=== PATIENT | female | born 1990 | race Caucasian/White ===

== ENCOUNTER 2016-08-13 10:33 | Emergency (ER) | payer OTHER ==
[~2016-08-13] VITALS: Ht 154.9 cm; Wt 61.4 kg
[~2016-08-13 10:33] MED LIST: ALBU18HF INH; DOCU250C2 PO; HYDR-3740; KETO10TA PO; LORA1TAB PO; OMEP20CA11 PO; ONDA4TAB12 PO; OXYC10TA8 PO; TAMS0.4C29 PO; ZOLP10TA5 PO
[2016-08-13 10:34] VITALS: BP 114/80; PULSE 91; RESP 18; O2SAT 100
[2016-08-13] MEDS ORDERED: Ondansetron 2 mg/mL 2 mL Inj IVPUSH ONE (10:40)
[2016-08-13] MEDS ORDERED: HYDROmorphone 1 mg/mL Inj IVPUSH PRN (11:25)
[2016-08-13 11:28] LABS: BASOPHILS % (AUTO) 0.3 % (0-3); EOSINOPHILS % (AUTO) 2.1 % (0-5); MONOCYTES % (AUTO) 10.1 % (4-12); Mean Corpuscular Volume 90.5 fL (81-100); NEUTROPHILS % (AUTO) 63.1 % (40-74); Platelet Count 216 bil/L (150-400)
--- NOTE | 2016-08-13 11:33 | ED.REPORT ---
HPI-Abd Pain F Under 40 Date of Service Aug 13, 2016 ED Provider: Feliberto Rodriguez PA-C Ann is a 26 old female presenting with a chief complaint of right flank pain. Patient reports a history of hysterectomy approximately year and a half ago for endometriosis and PID, treated by ureter damage resulting in several procedures to place stents and a ureter reimplantation. Patient reports ongoing kidney problems. She reports intermittent flank and abdominal pain over that time worsening in the last 2 days. She describes pain centered in her right flank radiating to her groin sometimes radiated across her lower abdomen. Complains of pain in her flank with urination, a sensation that she is not fully emptying her bladder but also leaking urine both at rest and with activity. Patient was treated with cephalexin for 5 days approximately 2 weeks ago for urinary tract infection, by Dr. Galindo, her PCP. Doctor Josie also referred her to [facility] emergency department last week for imaging to rule out appendicitis. 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 She has not established care with either urologist or denture laboratory technician locally. Admits nausea but denies vomiting, fever, diarrhea, melena, hematochezia. Admits episode of vaginal spotting 2 weeks ago which has resolved. Patient has a robust pain management plan in place including 7.5/325 mg hydrocodone/apap 2 tabs 4 times a day and 30 mg oxycodone 4 times a day. Admits history of cholecystectomy. Review of records obtained from [facility] indicate she was seen on 3 occasions at [facility] emergency Department for similar complaints, most recently yesterday. At that visit she received ultrasound of the appendix, and pelvis with transvaginal Doppler in which appendix was not visualized, normal ovaries with normal Doppler flow are visualized uterus and gallbladder are surgically absent. CT abdomen and pelvis with contrast reveals mild renal pelviectasis due to bladder distention. No acute intra-abdominal or pelvic abnormalities. Labs are negative for leukocytosis, CMP is normal Nursing Notes Stated Complaint: KIDNEY/PELVIC PAIN Chief Complaint: Female Abdominal Pain Nursing Notes Reviewed: Yes Allergies: Coded Allergies: Sulfa (Sulfonamide Antibiotics) (Verified Allergy, Severe, Rash,Itching,, 07/18/15) adhesive tape (Verified Allergy, Severe, Rash,Itching,, 07/18/15) ciprofloxacin (Verified Allergy, Severe, Rash,Itching,, 07/18/15) bupropion (Verified Adverse Reaction, Severe, Nausea,Vomiting, 07/18/15) haloperidol (Verified Adverse Reaction, Severe, Nausea,Vomiting, 07/18/15) ibuprofen (Verified Adverse Reaction, Severe, swell, 07/18/15) tramadol (Verified Adverse Reaction, Severe, Nausea,Vomiting, 07/18/15) Scheduled Amoxicillin/Clav K 875-125 mg (Amoxicillin/Clav K 875-125 mg) 875 Mg Tab 1 TABLET PO BID Omeprazole (Omeprazole) 20 Mg Capsule.dr 20 MG PO BID Ondansetron ODT (Ondansetron ODT) 8 Mg Tab.rapdis 8 MG PO TID Tamsulosin ER (Tamsulosin ER) 0.4 Mg Cap.er.24h 0.4 MG PO BID URINARY SPASMS Scheduled PRN Albuterol Sulfate (Ventolin HFA Inhaler) 200 Puff/18 Gm Inhaler 2 PUFFS INH Q4H PRN PRN For Shortness of Breath Docusate Sodium (Docusate Sodium) 250 Mg Capsule 1 CAPSULE PO BID PRN PRN For Constipation Hydrocodone-Acetaminophen 10-325 mg (Hydrocodone-Acetaminophen 10-325 mg) 1 Each Tablet 2 TAB Q4-6H PRN PRN For Pain Ketorolac Tromethamine (Ketorolac Tromethamine) 10 Mg Tablet 1 TAB PO Q4-6H PRN PRN For Pain Lorazepam (Lorazepam) 1 Mg Tablet 1 TAB PO TID PRN PRN For Anxiety Ondansetron ODT (Ondansetron ODT) 4 Mg Tab.rapdis 4 MG PO Q4-6H PRN PRN For Nausea Zolpidem (Zolpidem) 10 Mg Tablet 1 TAB PO HS PRN PRN For Insomnia oxyCODONE (oxyCODONE) 10 Mg Tablet 1 TAB PO Q6H PRN PRN For Pain General Time Seen by MD: 11:02 Chief Complaint Flank pain right Past Medical History Past Medical History 1. Pelvic inflammatory disease secondary to severe endometriosis status post partial abdominal hysterectomy. 2. Anxiety. 3. Asthma. 4. Insomnia. Past Surgical History 1. Partial abdominal hysterectomy. 2. Cholecystectomy. 3. Tonsillectomy and adenoidectomy. 4. Myringotomy with tympanostomy 22. 5. Exploratory laparotomies. Family History Mother with diabetes mellitus and history of cervical and uterine cancer status post total abdominal hysterectomy and bilateral salpingo-oophorectomy in remission. Father with diabetes mellitus, hypertension, prostate cancer. Brother with diabetes. Smoking History Current Every Day Smoker Social History The patient is been for 1 year and has no children of her own. Alcohol Use: Denies alcohol use Drug Use: Denies drug use Ambulatory Status Independent Review of Systems Negative unless stated otherwise in history of present illness Physical Exam General: Well appearing, well developed, well nourished, no acute distress. Head: Atraumatic, normocephalic. Eyes: No scleral icterus or injection. No discharge. Vision grossly intact. ENT: Voice clear, hearing grossly intact. Respiratory: Regular rate and rhythm. Breath sounds present, clear to auscultation and equal bilaterally. No respiratory distress. No increased work of breathing, speaks in complete sentences. Cardiovascular: Regular rate and rhythm, without murmur, gallop or rub. No pedal edema. Gastrointestinal: On examination abdomen reveals scars consistent with cholecystectomy, hysterectomy. Negative bruising. Abdomen flat, with mild global tenderness most prominently and right quadrants, without rebound. Bowel sounds normoactive. Back: Normal to inspection. Moderate to severe right CVA tenderness percussion. Referred pain to right CVA with percussion of left CVA Skin: Warm and dry. Neurological: Grossly nonfocal. Psychological: Alert and oriented. Speech appropriate, linear and logical. Behavior appropriate. Initial Vital Signs Vital Signs (First) Date Time Temp Pulse Resp B/P Pulse Ox O2 Delivery O2 Flow Rate FiO2 08/13/16 10:34 36.6 91 18 114/80 100 Room Air Normal Interpretation & Diagnostics Lab Results Interpretation Result Diagram: 08/13/16 1105 08/13/16 1105 Test 08/13/16 11:05 08/13/16 12:54 White Blood Count 6.3th/mm3 (3.8-10.1) Red Blood Count 4.86mil/mm3 (3.90-5.20) Hemoglobin 14.6g/dL (12.0-15.6) Hematocrit 44.0% (35.0-46.0) Mean Corpuscular Volume 90.5fL (81-100) Mean Corpuscular Hemoglobin 30.0pg (27.0-35.0) Mean Corpuscular Hemoglobin Concent 33.2% (32.0-37.0) Red Cell Distribution Width 13.1% (12.3-15.4) Platelet Count 216bil/L (150-400) Neutrophils (%) (Auto) 63.1% (40-74) Lymphocytes (%) (Auto) 23.3% (14-46) Monocytes (%) (Auto) 10.1% (4-12) Eosinophils (%) (Auto) 2.1% (0-5) Basophils (%) (Auto) 0.3% (0-3) Sodium Level 137mEq/L (134-144) Potassium Level 4.3mEq/L (3.5-5.2) Chloride Level 102mEq/L (97-108) Carbon Dioxide Level 21mmol/L (18-29) Blood Urea Nitrogen 18mg/dL (6-20) Creatinine 0.74mg/dL (0.57-1.00) Estimat Glomerular Filtration Rate 136mL/min (>59) Glucose Level 93mg/dL (60-99) Calcium Level 9.3mg/dL (8.5-10.1) Total Bilirubin 0.3mg/dL (0.0-1.2) Aspartate Amino Transf (AST/SGOT) 11U/L (0-50) Alanine Aminotransferase (ALT/SGPT) 7U/L (0-32) Alkaline Phosphatase 56U/L (25-150) Total Protein 7.4g/dL (6.4-8.4) Albumin 4.4g/dL (3.4-5.0) Urine Color Straw (YELLOW) Urine Appearance Slightly cloudy Urine pH 5.5 (5.0-8.0) Urine Specific Hulbert 1.015 (1.003-1.035) Urine Protein Negativemg/dL (NEG,TRACE) Urine Glucose (UA) Negativemg/dL (NEGATIVE) Urine Ketones Negativemg/dL (NEGATIVE) Urine Occult Blood Trace (NEGATIVE) Urine Nitrite Negative (NEGATIVE) Urine Bilirubin Negative (NEGATIVE) Urine Urobilinogen Normalmg/dL (NORMAL) Urine Leukocyte Esterase Negative (NEGATIVE) Urine RBC 0-2/hpf (0-2) Urine WBC 0-5/hpf (0-5) Urine Epithelial Cells Occasional/hpf (NONE-MOD) Urine Crystals None seen (NONE SEEN) Urine Bacteria Moderate/hpf (NONE-FEW) Urine Hyaline Casts None/lpf (NONE) Urine Granular Casts None seen (NONE SEEN) Urine Waxy Casts None seen (NONE SEEN) Urine Red Blood Cell Casts None seen (NONE SEEN) Urine White Blood Cell Casts None seen (NONE SEEN) Urine Mucus Present (None Seen) Urine Trichomonas None seen (NONE SEEN) Urine Yeast None (NONE SEEN) Urinalysis Comment None Urine Culture Reflexed Indicated Re-Eval/Medical Decision Med Decision/Clinical Course 26 year old female with a history of hysterectomy, cared by ureteral damage and several mitigating procedures since a chief complaint of right flank pain. This pain has been ongoing over the last year and a half however worsening in the last 2 days. Denies hematuria, burning with urination but admits to flank pain with urination. Denies fever. Reports abdominal imaging being performed last week as [facility] out of concern for appendicitis. Physical examination reveals a uncomfortable appearing female lying on the gurney patient states she cannot find a comfortable position. She has mild right abdominal tenderness without rebound, moderate to severe right CVA tenderness to percussion.. Vital signs are normal. Discussed case with Dr. Carlos. Records are requested from [facility]. Treatment is initiated with 1 mg of Dilaudid. CBC, CMP and UA, retroperitoneal ultrasound are ordered. CBC, CMP are normal. Retroperitoneal ultrasound reveals mild right hydronephrosis but not thought to be a cause of her flank pain. Urinalysis reveals mild bacteria and mild hematuria. Records received from [facility] include pelvic ultrasound, abdominal ultrasound and abdomen CT pelvis. These are summarized in the history of present illness and revealed no pathology. I discussed this case with Dr. Carlos. We agree that in light of the clinical picture involving flank pain and pain with urination, bacteriuria may justify treatment of antibiotics. Dr. Carlos recommends Augmentin for 10 days. We are reassured against appendicitis, ovarian torsion, ovarian cyst, ectopic ,ureter obstruction, nephrolithiasis, pyelonephritis, cystitis or abscess. We believe she is stable and safe to be discharged home. Recommend follow-up with primary care and provide a referral to urology. Provided emergency return precautions. Patient verbalizes understanding of and consent to the plan. Discharge & Departure Primary Impression: Right flank pain Additional Impression: Bacteria in urine Disposition: Home Discharge Condition All VS Reviewed: Yes Condition: Stable Additional Instructions: Evaluation in the emergency department for right flank pain includes interview, physical examination, review of records from [facility] as well as an ultrasound of the kidney all of which are reassuring that your pain is not caused by an immediately dangerous condition. I believe he is stable and safe to be discharged to home. I will write prescription for Augmentin to be taken twice a day for the next 10 days to treat the bacteria in her urine which may represent an infection. Please call the emergency department at [phone] on Tuesday to review the results of your urine cultures. At that time it may be appropriate to stop taking the medications. I will also write a prescription for antinausea medication. Continue to treat your pain with your previously prescribed pain medications. Follow-up your her primary care provider Tuesday or Tuesday of next week. I have also given you a referral to a urologist to continue investigating your flank pain. Return to the emergency department for new or worsening symptoms including fever , vomiting that does not respond to medication or significant changes in your pain. Referrals: Dee Teran MD EDSupervising Provider for [facility]: Babak Carlos MD copies to: Dee Teran MD; [facility] Feliberto Rodriguez PA-C Aug 13, 2016 11:33
[2016-08-13] MEDS: HYDROmorphone 0.5 mg/0.5 mL iSecure Syringe IVPUSH PRN ×2 (13:07→13:32)
--- NOTE | 2016-08-13 13:17 | DRSVH ---
PROCEDURE: US RENAL SONOGRAM INDICATIONS: R Flank pain, h/o ureteral reimplantation TECHNIQUE: Real-time scanning was performed of the kidneys and bladder, with image documentation. COMPARISON: None. FINDINGS: Kidneys: Kidneys are normal in size. Right kidney measures 10.4 cm long; left kidney measures 11.2 cm long. Right renal cortical thickness is 1.1 cm; left renal cortical thickness is 1.4 cm. Renal c ortical echotexture is normal. No hydronephrosis or nephrolithiasis on the left but there is mild to moderate right hydronephrosis with proximal ureter measuring up to 8 mm. No suspicious solid mass l esions. Bladder: Patient had voided just prior to examination and therefore visualization is very limited. Miscellaneous: No free pelvic fluid. IMPRESSION: Hydronephrosis on the right, mild to moderate in overall severity and certainly within th e range of what is often seen in the setting of ureteral reimplantation procedure. Depending on the clinical status however a followup CT scan may be warranted. As noted the bladder visualization is very limited due to the patient having voided just prior to the examination. Dictated by: Ramon Parsons M.D. on 08/13/2016 at 13:13 Approved by: Ramon Parsons M.D. on 08/13/2016 at 13:15
[2016-08-13] MEDS ORDERED: AGM875T PO (14:05)
[2016-08-13] MEDS ORDERED: ONDA8TAB10 PO (14:05)
[2016-08-13 14:26] VITALS: BP 120/69; PULSE 80; RESP 16; O2SAT 95
== END 2016-08-13 14:27 | disposition home or self-care (01) ==
LOC: SED 10:33
DX: R10.9 Unspecified abdominal pain (principal); R82.71 Bacteriuria; R11.0 Nausea; F17.200 Nicotine dependence, unspecified, uncomplicated; F41.9 Anxiety disorder, unspecified; Z90.710 Acquired absence of both cervix and uterus; Z90.49 Acquired absence of other specified parts of digestive tract; Z87.42 Personal history of other diseases of the female genital tract; Z79.51 Long term (current) use of inhaled steroids; Z88.6 Allergy status to analgesic agent; Z88.1 Allergy status to other antibiotic agents; Z88.8 Allergy status to other drugs, medicaments and biological substances; Z88.2 Allergy status to sulfonamides
CPT/HCPCS: 36415; 51798; 76770; 80053; 85025; 87086; 87088; 96374; 96375; 96376; 99285; J1170; J2405

== ENCOUNTER 2016-08-15 11:17 | Emergency (ER) | payer OTHER ==
[~2016-08-15] VITALS: Ht 157.5 cm; Wt 61.3 kg
[~2016-08-15 11:17] MED LIST changes: +AGM875T PO; +ONDA8TAB10 PO
[2016-08-15 11:20] VITALS: BP 122/86; PULSE 96; RESP 16; O2SAT 100
--- NOTE | 2016-08-15 11:26 | ED.REPORT ---
HPI-Abd Pain F Under 40 Date of Service Aug 15, 2016 ED Provider: The patient is a 26 year old female with history of pelvic inflammatory disease secondary to severe endometriosis s/p partial hysterectomy, as well as prior ureter reimplantation (December 2014), renal stents, and cholecystectomy, who presents to the emergency department complaining of worsening RLQ abdominal pain that began a few days ago. Her pain radiates into her right flank and back. She was seen by her regular doctor about 1 week ago, was placed on Keflex but was not improving after 4 days. She was then seen here 2 days ago for the same, was diagnosed with a urinary tract infection, and was sent home on amoxicillin. She returns today because she is not getting better, and she has also experienced increased abdominal and back pain, intermittent subjective fever, chills, nausea, vomiting, urinary urgency, and dysuria. The patient also reports that she had a negative abdominal CT scan a few weeks ago. Nursing Notes Stated Complaint: KIDNEY PAIN/VOMITING Chief Complaint: Female Abdominal Pain Nursing Notes Reviewed: Yes Allergies: Coded Allergies: Sulfa (Sulfonamide Antibiotics) (Verified Allergy, Severe, Rash,Itching,, 07/18/15) adhesive tape (Verified Allergy, Severe, Rash,Itching,, 07/18/15) ciprofloxacin (Verified Allergy, Severe, Rash,Itching,, 07/18/15) bupropion (Verified Adverse Reaction, Severe, Nausea,Vomiting, 07/18/15) haloperidol (Verified Adverse Reaction, Severe, Nausea,Vomiting, 07/18/15) ibuprofen (Verified Adverse Reaction, Severe, swell, 07/18/15) tramadol (Verified Adverse Reaction, Severe, Nausea,Vomiting, 07/18/15) Scheduled Amoxicillin/Clav K 875-125 mg (Amoxicillin/Clav K 875-125 mg) 875 Mg Tab 1 TABLET PO BID Omeprazole (Omeprazole) 20 Mg Capsule.dr 20 MG PO BID Ondansetron ODT (Ondansetron ODT) 8 Mg Tab.rapdis 8 MG PO TID Tamsulosin ER (Tamsulosin ER) 0.4 Mg Cap.er.24h 0.4 MG PO BID URINARY SPASMS Scheduled PRN Albuterol Sulfate (Ventolin HFA Inhaler) 200 Puff/18 Gm Inhaler 2 PUFFS INH Q4H PRN PRN For Shortness of Breath Docusate Sodium (Docusate Sodium) 250 Mg Capsule 1 CAPSULE PO BID PRN PRN For Constipation Hydrocodone-Acetaminophen 10-325 mg (Hydrocodone-Acetaminophen 10-325 mg) 1 Each Tablet 2 TAB Q4-6H PRN PRN For Pain Ketorolac Tromethamine (Ketorolac Tromethamine) 10 Mg Tablet 1 TAB PO Q4-6H PRN PRN For Pain Lorazepam (Lorazepam) 1 Mg Tablet 1 TAB PO TID PRN PRN For Anxiety Ondansetron ODT (Ondansetron ODT) 4 Mg Tab.rapdis 4 MG PO Q4-6H PRN PRN For Nausea Zolpidem (Zolpidem) 10 Mg Tablet 1 TAB PO HS PRN PRN For Insomnia oxyCODONE (oxyCODONE) 10 Mg Tablet 1 TAB PO Q6H PRN PRN For Pain oxyCODONE-Acetaminophen 5-325 mg (oxyCODONE-Acetaminophen 5-325 mg) 1 Each Tablet 1-2 TAB PO Q6H PRN PRN For Pain General Time Seen by MD: 11:26 Chief Complaint Abdominal pain Hx Obtained From: Patient Arrived By: Walk-in Sudden in Onset?: No Onset Occurred: 4 days ago Symptom Duration: Since onset Progression since Onset: Constant, Gradually worsening Location: : RLQ Quality: Painful Radiation: : Back: Flank right Severity: Current: Moderate Severity: Maximum: Severe Recent Healthcare: No recent hospitalization, Recent doctor visit Similar Sx Previous: Yes Past Medical History Past Medical History 1. Pelvic inflammatory disease secondary to severe endometriosis status post partial abdominal hysterectomy. 2. Anxiety. 3. Asthma. 4. Insomnia. Past Surgical History 1. Partial abdominal hysterectomy. 2. Cholecystectomy. 3. Tonsillectomy and adenoidectomy. 4. Myringotomy with tympanostomy 22. 5. Exploratory laparotomies. Family History Mother with diabetes mellitus and history of cervical and uterine cancer status post total abdominal hysterectomy and bilateral salpingo-oophorectomy in remission. Father with diabetes mellitus, hypertension, prostate cancer. Brother with diabetes. Smoking History Current Every Day Smoker Social History Alcohol Use: Denies alcohol use Drug Use: Denies drug use Other Social History: Good social support, , Local resident Ambulatory Status Independent Review of Systems Constitutional: Reports: Chills, Fever (subjective) GI: Reports: Abdominal pain, Nausea, Vomiting, Denies: Diarrhea Female: Reports: Dysuria, Flank pain, Urinary urgency Musculoskeletal: Reports: Back pain Complete sys rev & neg: except as marked. Physical Exam Initial Vital Signs Vital Signs (First) Date Time Temp Pulse Resp B/P Pulse Ox O2 Delivery O2 Flow Rate FiO2 08/15/16 11:20 36.8 96 16 122/86 100 Room Air Initial VS: Reviewed Head / Eyes: Atraumatic, Normocephalic, PERRL ENT: Mucous membranes moist, Conjunctiva normal, No scleral icterus Neck: Supple, Non-tender, Full range of motion Lymphatic: No lymphadenopathy Extremities: Vascular intact, Neuro intact, No swelling, No tenderness Skin: Warm, Dry, No cyanosis Neurologic: Alert, Oriented, Nonfocal Psychiatric: Mood/affect normal, Behavior normal, Normal thought content General/Constitutional: Awake, Alert, No acute distress, Well appearing Respiratory / Chest: Atraumatic, Breath sounds NL, Breath sounds = bilat, No respiratory distress, No rales, No rhonchi, No wheezing Cardiovascular: Heart rate NL, Regular rhythm, Heart sounds NL, No gallop, No murmurs, No rubs, Peripheral circulation NL Abdomen: Soft, No guarding, No rebound, BS normoactive, No distention, No hernia, No palpable mass, No pulsatile mass Tenderness/Guarding/Rebound: Positive: Tender RLQ... Back: No midline vertebral tend Flank / Spine / Paraspinal: Positive: Flank tender R Interpretation & Diagnostics Interpretation & Diagnostics: Post-void bladder scan shows 500 mL Lab Results Interpretation Result Diagram: 08/15/16 1220 08/15/16 1220 Test 08/15/16 12:20 08/15/16 13:35 White Blood Count 6.6th/mm3 (3.8-10.1) Red Blood Count 4.66mil/mm3 (3.90-5.20) Hemoglobin 13.7g/dL (12.0-15.6) Hematocrit 42.2% (35.0-46.0) Mean Corpuscular Volume 90.6fL (81-100) Mean Corpuscular Hemoglobin 29.4pg (27.0-35.0) Mean Corpuscular Hemoglobin Concent 32.5% (32.0-37.0) Red Cell Distribution Width 12.9% (12.3-15.4) Platelet Count 198bil/L (150-400) Neutrophils (%) (Auto) 58.5% (40-74) Lymphocytes (%) (Auto) 27.8% (14-46) Monocytes (%) (Auto) 10.0% (4-12) Eosinophils (%) (Auto) 2.3% (0-5) Basophils (%) (Auto) 0.2% (0-3) Sodium Level 136mEq/L (134-144) Potassium Level 4.0mEq/L (3.5-5.2) Chloride Level 101mEq/L (97-108) Carbon Dioxide Level 21mmol/L (18-29) Blood Urea Nitrogen 11mg/dL (6-20) Creatinine 0.74mg/dL (0.57-1.00) Estimat Glomerular Filtration Rate 136mL/min (>59) Glucose Level 96mg/dL (60-99) Calcium Level 9.1mg/dL (8.5-10.1) Magnesium Level 2.0mg/dL (1.6-2.6) Total Bilirubin 0.4mg/dL (0.0-1.2) Aspartate Amino Transf (AST/SGOT) 12U/L (0-50) Alanine Aminotransferase (ALT/SGPT) 6U/L (0-32) Alkaline Phosphatase 51U/L (25-150) Total Protein 7.2g/dL (6.4-8.4) Albumin 4.2g/dL (3.4-5.0) Lipase 29U/L (13-60) Urine Color Yellow (YELLOW) Urine Appearance Cloudy (CLEAR,HAZY) Urine pH 8.5 (5.0-8.0) Urine Specific [place] 1.010 (1.003-1.035) Urine Protein Negativemg/dL (NEG,TRACE) Urine Glucose (UA) Negativemg/dL (NEGATIVE) Urine Ketones Negativemg/dL (NEGATIVE) Urine Occult Blood Negative (NEGATIVE) Urine Nitrite Negative (NEGATIVE) Urine Bilirubin Negative (NEGATIVE) Urine Urobilinogen Normalmg/dL (NORMAL) Urine Leukocyte Esterase Negative (NEGATIVE) Urine RBC 0-2/hpf (0-2) Urine WBC 6-10/hpf (0-5) Urine Epithelial Cells Many/hpf (NONE-MOD) Urine Crystals None seen (NONE SEEN) Urine Bacteria Many/hpf (NONE-FEW) Urine Hyaline Casts Rare/lpf (NONE) Urine Granular Casts None seen (NONE SEEN) Urine Waxy Casts None seen (NONE SEEN) Urine Red Blood Cell Casts None seen (NONE SEEN) Urine White Blood Cell Casts None seen (NONE SEEN) Urine Mucus Present (None Seen) Urine Trichomonas None seen (NONE SEEN) Urine Yeast None (NONE SEEN) Urinalysis Comment None Urine Culture Reflexed Indicated CT Abd / Pelvis Interpretation IMPRESSION: 1. No evidence of appendicitis. 2. Right ovarian cyst measuring up to 3.4 cm. Further evaluation may be obtained with a pelvic ultrasound if clinically indicated. 3. Trace free fluid in the pelvis which appears within physiologic limits. Dictated by: Jass Patterson M.D. on 08/15/2016 at 14:16 Interpretation / Wet Read by: Interpret - Radiologist Re-Eval/Medical Decision Med Decision/Clinical Course Med Decision/Clinical Course: Patient presents with ongoing right-sided flank and suprapubic pain, her workup is largely reassuring. I did discuss her case with urology who agrees to see her in the next few days. An oxycodone prescription was written however the patient declined this. Of note I initially did order a pelvic ultrasound on the patient because she had a CT finding of a ovarian cyst on the appropriate side. However, after discussion with the patient she does not feel that her pain is related to an ovary ovarian cyst and that it is very similar to the feeling of hydronephrosis that she has had previously. She declined to have ultrasound. Return and follow-up precautions given Source of Hx: Old records, Family Re-Evaluation/Progress #1: Time of Eval: 14:00 Re-Evaluation/Progress Note: The patient is still complaining of pain. Re-Evaluation/Progress #2: Time of Eval: 14:30 Re-Evaluation/Progress Note: The patient was able to get up and walk to the restroom. Re-Evaluation/Progress #3: Time of Eval: 16:34 Re-Evaluation/Progress Note: Rechecked the patient. She is requesting additional pain medications. Will consult with urology. Re-Evaluation/Progress #4: Time of Eval: 16:46 Re-Evaluation/Progress Note: Rechecked the patient. Discussed results, diagnosis, and plan for discharge. All questions were addressed. Consultation : Referral / Consult Name: Dee Teran MD Consulted With: Urology Requested Call at: 16:35 Call Returned at: 16:36 Community Reinvestment Act Officer: Agrees with sara, Agrees with plan Note: It is reasonable to discharge. She does not recommend putting in a Otto due to complexity. Counseled Regarding: Diagnosis, Lab results, Need for follow-up, When/why to return to ED Discharge & Departure Primary Impression: Right flank pain Disposition: Home Discharge Condition All VS Reviewed: Yes Condition: Stable Additional Instructions: Thank you for entrusting us with your care today. Your results today are reassuring. There is no evidence of anything acutely dangerous at this time. You should be seen by a urologist in the next week or so for re-evaluation. We have given you a referral to Dr. Teran. Call tomorrow to schedule an appointment. Return to the emergency department for any new or concerning symptoms. Referrals: OTHER,PHYSICIAN (PCP) Dee Teran MD Attestation Portions of this note were transcribed by Kari Gordillo. I, Dr. Arriaga personally performed the history, physical exam and medical decision-making; I reviewed and confirmed the accuracy of the information in the transcribed note. Signed by: Clovis Cedeno, 08/15/2016 at 3145. copies to: Dee Teran MD, Timothy Abdirahman ELLIOTT Aug 15, 2016 11:26 Kari Gordillo Aug 15, 2016 11:35
[2016-08-15] MEDS ORDERED: 0.9% Sodium Chloride 1,000 ML IV ONE (11:34)
[2016-08-15] MEDS ORDERED: Iohexol 300 mg/mL 30 mL Inj PO ONE (11:50)
[2016-08-15] MEDS: Ondansetron 2 mg/mL 2 mL Inj IVPUSH PRN ×2 (12:22→14:36)
[2016-08-15 12:29] LABS: BASOPHILS % (AUTO) 0.2 % (0-3); EOSINOPHILS % (AUTO) 2.3 % (0-5); Mean Corpuscular Hemoglobin 29.4 pg (27.0-35.0); Mean Corpuscular Volume 90.6 fL (81-100); NEUTROPHILS % (AUTO) 58.5 % (40-74); Platelet Count 198 bil/L (150-400)
[2016-08-15] MEDS: fentaNYL-PF 50 mCg/mL 2 mL Inj IVPUSH PRN ×3 (12:33→13:24)
[2016-08-15 14:12] LABS: COLOR,URINE YELLOW (YELLOW)
[2016-08-15 14:13] LABS: APPEARANCE,URINE CLOUDY (CLEAR,HAZY); OCCULT BLOOD,URINE NEGATIVE (NEGATIVE); PH,URINE 8.5 (5.0-8.0); UROBILINOGEN,URINE NORMAL (NORMAL)
[2016-08-15] MEDS ORDERED: HYDROmorphone 1 mg/mL Inj IVPUSH ONE (14:20)
--- NOTE | 2016-08-15 14:21 | DRSVH ---
PROCEDURE: CT ABDOMEN AND PELVIS WITH CONTRAST ([id number]) INDICATIONS: Right lower quadrant pain TECHNIQUE: After the administration of oral and intravenous contrast, 5 mm thick sections acquired from the diap hragms to the symphysis. 5 mm thick coronal and sagittal reformats were performed. For radiation do se reduction, the following was used: automated exposure control, adjustment of mA and/or kV accordi ng to patient size. COMPARISON: [facility], CT, CT ABD PELVIS W CON, 07/17/2015, 23:25. FINDINGS: Image quality: Excellent. ABDOMEN: Lung bases: There is mild dependent atelectasis. Heart size is normal. Solid organs: Liver and spleen are normal in size and enhancement. Gallbladder is surgically absent . Biliary system is non-dilated. Pancreas enhances normally. No adrenal nodules. Kidneys are norm al in size and enhancement, without hydronephrosis. Peritoneum and bowel: Stomach, small bowel, and colon loops are normal in caliber and wall thickness . No evidence of appendicitis. There is trace free fluid in the pelvis which appears within physiol ogic limits. No free air. Nodes and vessels: No retroperitoneal or mesenteric adenopathy. Aorta and inferior vena cava are no rmal in caliber. Miscellaneous: No ventral hernias. PELVIS: Genitourinary: Bladder wall thickness is normal. There is a right ovarian cyst measuring up to 3.4 cm. Miscellaneous: No inguinal hernias or adenopathy. Bones: No suspicious bony lesions. No vertebral body compression fractures. IMPRESSION: 1. No evidence of appendicitis. 2. Right ovarian cyst measuring up to 3.4 cm. Further evaluation may be obtained with a pelvic ultr asound if clinically indicated. 3. Trace free fluid in the pelvis which appears within physiologic limits. Dictated by: Jass Patterson M.D. on 08/15/2016 at 14:16 Approved by: Jass Patterson M.D. on 08/15/2016 at 14:20
[2016-08-15 15:50] VITALS: BP 118/84; PULSE 88; RESP 14; O2SAT 100
[2016-08-15] MEDS ORDERED: oxyCODONE-Acetamin 5-325 mg Tablet PO ONE (16:45)
[2016-08-15] MEDS ORDERED: OXYC1TAB24 PO (17:04)
[2016-08-15 17:16] VITALS: BP 102/57; PULSE 82; RESP 17; O2SAT 98
== END 2016-08-15 17:18 | disposition home or self-care (01) ==
LOC: SED 11:17
DX: R10.31 Right lower quadrant pain (principal); N83.201 Unspecified ovarian cyst, right side; N80.8 Other endometriosis; N73.9 Female pelvic inflammatory disease, unspecified; F17.200 Nicotine dependence, unspecified, uncomplicated; Z90.711 Acquired absence of uterus with remaining cervical stump; Z96.89 Presence of other specified functional implants; Z90.49 Acquired absence of other specified parts of digestive tract; Z88.1 Allergy status to other antibiotic agents; Z88.2 Allergy status to sulfonamides; Z88.5 Allergy status to narcotic agent; Z88.6 Allergy status to analgesic agent; Z88.8 Allergy status to other drugs, medicaments and biological substances
CPT/HCPCS: 36415; 74177; 80053; 81000; 81025; 83690; 83735; 85025; 87086; 87088; 96361; 96374; 96375; 96376; 99285; J1170; J2405; J3010; J7030; Q9967

== ENCOUNTER 2016-08-24 10:40 | Emergency (ER) | payer OTHER ==
[~2016-08-24] VITALS: Ht 157.5 cm; Wt 62.7 kg
[~2016-08-24 10:40] MED LIST changes: +OXYC1TAB24 PO
[2016-08-24 10:57] VITALS: BP 111/78; PULSE 86; RESP 14; O2SAT 99
[2016-08-24 11:24] LABS: BASOPHILS % (AUTO) 0.5 % (0-3); EOSINOPHILS % (AUTO) 2.3 % (0-5); MONOCYTES % (AUTO) 10.2 % (4-12); Mean Corpuscular Hemoglobin 29.9 pg (27.0-35.0); Mean Corpuscular Volume 87.8 fL (81-100); Platelet Count 222 bil/L (150-400)
--- NOTE | 2016-08-24 11:41 | ED.REPORT ---
HPI-General Illness Date of Service Aug 24, 2016 ED Provider: Dr. Arriaga 26 y/o female with a hx of pelvic inflammatory disease secondary to severe endometriosis s/p partial hysterectomy, as well as prior ureter reimplantation ( December 2014) and renal stents presents to the ED complaining of worsening sharp right flank pain that radiates to her right inguinal area for the last 2 weeks. Associated sx include nausea, vomiting all night long, lack of appetite, dysuria and mild lower extremity edema. Her current pain is not similar to the pain she experienced when she was diagnosed with cysts.The pt takes Oxycodone 20mg per day, as prescribed by her PCP. She last took it this morning. Nursing Notes Stated Complaint: RT KIDNEY PAIN, VOMITING, NAUSEA Chief Complaint: Back Pain or Injury Nursing Notes Reviewed: Yes Allergies: Coded Allergies: Sulfa (Sulfonamide Antibiotics) (Verified Allergy, Severe, Rash,Itching,, 07/18/15) adhesive tape (Verified Allergy, Severe, Rash,Itching,, 07/18/15) ciprofloxacin (Verified Allergy, Severe, Rash,Itching,, 07/18/15) bupropion (Verified Adverse Reaction, Severe, Nausea,Vomiting, 07/18/15) haloperidol (Verified Adverse Reaction, Severe, Nausea,Vomiting, 07/18/15) ibuprofen (Verified Adverse Reaction, Severe, swell, 07/18/15) tramadol (Verified Adverse Reaction, Severe, Nausea,Vomiting, 07/18/15) Scheduled Amoxicillin/Clav K 875-125 mg (Amoxicillin/Clav K 875-125 mg) 875 Mg Tab 1 TABLET PO BID Cephalexin (Keflex) 500 Mg Capsule 500 MG PO QID Omeprazole (Omeprazole) 20 Mg Capsule.dr 20 MG PO BID Ondansetron ODT (Ondansetron ODT) 8 Mg Tab.rapdis 8 MG PO TID Tamsulosin ER (Tamsulosin ER) 0.4 Mg Cap.er.24h 0.4 MG PO BID URINARY SPASMS Scheduled PRN Albuterol Sulfate (Ventolin HFA Inhaler) 200 Puff/18 Gm Inhaler 2 PUFFS INH Q4H PRN PRN For Shortness of Breath Docusate Sodium (Docusate Sodium) 250 Mg Capsule 1 CAPSULE PO BID PRN PRN For Constipation Hydrocodone-Acetaminophen 10-325 mg (Hydrocodone-Acetaminophen 10-325 mg) 1 Each Tablet 2 TAB Q4-6H PRN PRN For Pain Ketorolac Tromethamine (Ketorolac Tromethamine) 10 Mg Tablet 1 TAB PO Q4-6H PRN PRN For Pain Lorazepam (Lorazepam) 1 Mg Tablet 1 TAB PO TID PRN PRN For Anxiety Ondansetron ODT (Ondansetron ODT) 4 Mg Tab.rapdis 4 MG PO Q4-6H PRN PRN For Nausea Zolpidem (Zolpidem) 10 Mg Tablet 1 TAB PO HS PRN PRN For Insomnia oxyCODONE (oxyCODONE) 10 Mg Tablet 1 TAB PO Q6H PRN PRN For Pain oxyCODONE-Acetaminophen 5-325 mg (oxyCODONE-Acetaminophen 5-325 mg) 1 Each Tablet 1-2 TAB PO Q6H PRN PRN For Pain General Time Seen by MD: 11:41 Chief Complaint Other (right flank pain) Hx Obtained From: Patient Arrived By: Walk-in Sudden in Onset?: Yes Onset Occurred: More than a week ago... (2 weeks) Symptom Duration: Since onset Quality: Sharp Severity: Current: Severe Severity: Maximum: Severe Recent Healthcare: Recent doctor visit Similar Sx Previous: Yes Past Medical History Past Medical History 1. Pelvic inflammatory disease secondary to severe endometriosis status post partial abdominal hysterectomy. 2. Anxiety. 3. Asthma. 4. Insomnia. Past Surgical History 1. Partial abdominal hysterectomy. 2. Cholecystectomy. 3. Tonsillectomy and adenoidectomy. 4. Myringotomy with tympanostomy 22. 5. Exploratory laparotomies. Family History Mother with diabetes mellitus and history of cervical and uterine cancer status post total abdominal hysterectomy and bilateral salpingo-oophorectomy in remission. Father with diabetes mellitus, hypertension, prostate cancer. Brother with diabetes. Smoking History Current Every Day Smoker Social History Alcohol Use: Denies alcohol use Drug Use: Denies drug use Other Social History: Good social support, , Local resident Ambulatory Status Independent Review of Systems Reports: right inguinal pain Reports: lack of appetite Full Review of Systems Cardiovascular: Reports: Edema (mild) GI: Reports: Nausea, Vomiting Female: Reports: Dysuria, Flank pain (right) Complete sys rev & neg: except as marked. Physical Exam Vital Signs Vital Signs Date Time Temp Pulse Resp B/P Pulse Ox O2 Delivery O2 Flow Rate FiO2 7/18/17 15:42 36.0 91 16 107/63 96 Room Air 08/24/16 14:02 36.7 88 18 104/73 100 Room Air 08/24/16 10:57 36.9 86 14 111/78 99 Initial VS: Reviewed Head / Eyes: Atraumatic, Normocephalic Neck: Supple, Non-tender, Full range of motion Respiratory: Breath sounds normal, Clear to auscultation, No respiratory distress Cardiovascular: Regular rate & rhythm, Heart sounds normal, Intact distal pulses Abdomen / GI: Soft, Non-tender, No guarding, No rebound Extremities: Vascular intact, Neuro intact, No swelling, No tenderness Skin: Warm, Dry, No cyanosis Neurologic: Alert, Oriented, Nonfocal General/Constitutional: Awake, Alert Distress / Hydration: Positive: Distress mild Behavior: Positive: Anxious Back: Atraumatic, Full range of motion Mild CVA tenderness bilaterally Interpretation & Diagnostics Lab Results Interpretation Result Diagram: 08/24/16 1115 08/24/16 1115 Test 08/24/16 11:15 08/24/16 12:34 White Blood Count 6.2th/mm3 (3.8-10.1) Red Blood Count 4.82mil/mm3 (3.90-5.20) Hemoglobin 14.4g/dL (12.0-15.6) Hematocrit 42.3% (35.0-46.0) Mean Corpuscular Volume 87.8fL (81-100) Mean Corpuscular Hemoglobin 29.9pg (27.0-35.0) Mean Corpuscular Hemoglobin Concent 34.0% (32.0-37.0) Red Cell Distribution Width 13.2% (12.3-15.4) Platelet Count 222bil/L (150-400) Neutrophils (%) (Auto) 61.0% (40-74) Lymphocytes (%) (Auto) 25.0% (14-46) Monocytes (%) (Auto) 10.2% (4-12) Eosinophils (%) (Auto) 2.3% (0-5) Basophils (%) (Auto) 0.5% (0-3) Sodium Level 140mEq/L (134-144) Potassium Level 4.1mEq/L (3.5-5.2) Chloride Level 104mEq/L (97-108) Carbon Dioxide Level 23mmol/L (18-29) Blood Urea Nitrogen 12mg/dL (6-20) Creatinine 0.68mg/dL (0.57-1.00) Estimat Glomerular Filtration Rate 150mL/min (>59) Glucose Level 95mg/dL (60-99) Calcium Level 9.2mg/dL (8.5-10.1) Total Bilirubin 0.3mg/dL (0.0-1.2) Aspartate Amino Transf (AST/SGOT) 12U/L (0-50) Alanine Aminotransferase (ALT/SGPT) 6U/L (0-32) Alkaline Phosphatase 57U/L (25-150) Total Protein 7.6g/dL (6.4-8.4) Albumin 4.2g/dL (3.4-5.0) Hold Galvez Top Tube Received (Received) Urine Color Yellow (YELLOW) Urine Appearance Clear (CLEAR,HAZY) Urine pH 5.5 (5.0-8.0) Urine Specific [place] 1.030 (1.003-1.035) Urine Protein Negativemg/dL (NEG,TRACE) Urine Glucose (UA) Negativemg/dL (NEGATIVE) Urine Ketones Negativemg/dL (NEGATIVE) Urine Occult Blood Negative (NEGATIVE) Urine Nitrite Negative (NEGATIVE) Urine Bilirubin Negative (NEGATIVE) Urine Urobilinogen Normalmg/dL (NORMAL) Urine Leukocyte Esterase Negative (NEGATIVE) Urine RBC 0-2/hpf (0-2) Urine WBC 0-5/hpf (0-5) Urine Epithelial Cells Occasional/hpf (NONE-MOD) Urine Crystals None seen (NONE SEEN) Urine Bacteria Few/hpf (NONE-FEW) Urine Hyaline Casts None/lpf (NONE) Urine Granular Casts None seen (NONE SEEN) Urine Waxy Casts None seen (NONE SEEN) Urine Red Blood Cell Casts None seen (NONE SEEN) Urine White Blood Cell Casts None seen (NONE SEEN) Urine Mucus Present (None Seen) Urine Trichomonas None seen (NONE SEEN) Urine Yeast None (NONE SEEN) Urinalysis Comment None Urine Culture Reflexed Not indicated Re-Eval/Medical Decision Med Decision/Clinical Course Patient is on a chronic pain regimen. No obvious physiologic cause is identified for the patient's pain today. Records were reviewed and the case is discussed with urology. Previous post-void residuals have been normal, however given the patient's complaint today urology recommended offering a Otto. Otto was placed. Keflex prescribed for prophylaxis. No changes to the patient's chronic pain regimen were performed. Patient has been made a close outpatient follow-up appointment with urology. Return and follow-up precautions given Time of Eval: 14:42 Re-Evaluation/Progress Note: Rechecked pt. She got the catheter and is put on prophylactic antibiotics. Discussed lab results, imaging results, diagnosis and plan to discharge. Pt understands and agrees with the plan. F/U instructions and RTER warning given. All questions addressed. 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 Teran states catheter is okay. She can see her in the office. She coudl have a nuclear renal scan. Follow up scheduled in a week. Counseled Regarding: Diagnosis, Lab results, Need for follow-up, When/why to return to ED Discharge & Departure Primary Impression: Right flank pain Disposition: Home Discharge Condition All VS Reviewed: Yes Condition: Stable Additional Instructions: Thank you for entrusting us with your care today. As discussed, please keep your appointment with the Urologist mentioned below on 09/01/16 at 9:30am Follow up with your primary care provider if needed. The emergency department is always available for any concerns. Referrals: OTHER,PHYSICIAN (PCP) Bradley Simpson MD, Sandra J MD Scribe Attestation Portions of this note were transcribed by Bin Spear. I,, personally performed the history, physical exam and medical decision-making;I reviewed and confirmed the accuracy of the information in the transcribed note. Signed by Clovis Markham. 08/24/16 15:16 copies to: Bradley Simpson MD, Timothy S DO Aug 24, 2016 11:41 Bin Spear Aug 24, 2016 12:36
[2016-08-24 12:51] LABS: APPEARANCE,URINE CLEAR (CLEAR,HAZY); COLOR,URINE YELLOW (YELLOW); OCCULT BLOOD,URINE NEGATIVE (NEGATIVE); PH,URINE 5.5 (5.0-8.0); UROBILINOGEN,URINE NORMAL (NORMAL)
[2016-08-24] MEDS ORDERED: LORazepam 1 mg Tablet PO ONE (13:30)
[2016-08-24] MEDS ORDERED: Ondansetron 8 mg ODT Tablet PO ONE (13:30)
[2016-08-24 14:02] VITALS: BP 104/73; PULSE 88; RESP 18; O2SAT 100
[2016-08-24] MEDS ORDERED: HYDROcodone-APAP 10-325 mg PO ONE (14:45)
[2016-08-24] MEDS ORDERED: CEPH-512 PO (15:09)
[2016-08-24 15:42] VITALS: BP 107/63; PULSE 91; RESP 16; O2SAT 96
--- NOTE | 2016-08-24 16:44 | DRSVH ---
PROCEDURE: US RENAL SONOGRAM INDICATIONS: eval right flank pain, concern for worsening hydro TECHNIQUE: Real-time scanning was performed of the kidneys and bladder, with image documentation. COMPARISON: [facility], US, US RENAL, 08/13/2016, 12:21. FINDINGS: Kidneys: Right kidney measures 9.3 cm long; left kidney measures 11 cm long. Right renal cortical t hickness is 0.9 cm; left renal cortical thickness is 1.0 cm. Renal cortical echotexture is normal. There is persistent mild right hydronephrosis which appears similar to the prior study. No left hydr onephrosis. Bladder: The urinary bladder is nondistended secondary to patient voiding prior to the study. Neith er ureteral jets are noted with color Doppler interrogation. (Of note, ureteral jets may not be dete ctable in up to 25% of cases due to insufficient differences in specific gravity between ureteral and bladder urine). Miscellaneous: No free pelvic fluid. IMPRESSION: 1. Persistent mild right hydronephrosis which appears similar to the prior study. Dictated by: Jass Patterson M.D. on 08/24/2016 at 16:40 Approved by: Jass Patterson M.D. on 08/24/2016 at 16:42
== END 2016-08-24 15:40 | disposition home or self-care (01) ==
LOC: SED 10:40
DX: R10.9 Unspecified abdominal pain (principal); F17.200 Nicotine dependence, unspecified, uncomplicated; Z90.710 Acquired absence of both cervix and uterus; Z88.1 Allergy status to other antibiotic agents; Z88.2 Allergy status to sulfonamides; Z88.6 Allergy status to analgesic agent; Z88.8 Allergy status to other drugs, medicaments and biological substances

== ENCOUNTER 2016-10-31 19:07 | Emergency (ER) | payer OTHER ==
[~2016-10-31] VITALS: Ht 154.9 cm; Wt 59.1 kg
[~2016-10-31 19:07] MED LIST changes: +CEPH-512 PO
[2016-10-31 19:12] VITALS: BP 112/81; PULSE 96; RESP 16; O2SAT 99
--- NOTE | 2016-10-31 20:47 | ED.REPORT ---
HPI- Female Date of Service Oct 31, 2016 ED Provider: Flako Mullen MD Pt is a 26 year old female with a history of multiple urinary surgeries, PID, endometriosis, and partial hysterectomy who presents to the ED complaining of urinary retention onset earlier today. She describes her pain as an intermittent pressures with a tingling sensation in her right leg. She had a urethral catheter [facility] at 1100 [facility] due to a complication from her hysterectomy in 12/20/14, and over one liter of urine was drained. Additional symptoms include right flank pain, right-sided pelvic pain, fatigue, subjective fever onset yesterday, and malaise. She denies coughing. Pt reports taking 20 mg of oxycodone every 4 hours for her pain, and over the past 24 months, she has had a catheter placed for about 8-9 months. She saw urologist, Dr. Teran, once for her pain. Nursing Notes Stated Complaint: KIDNEY AND PELVIC PAIN Chief Complaint: Female Abdominal Pain Nursing Notes Reviewed: Yes Allergies: Coded Allergies: Sulfa (Sulfonamide Antibiotics) (Verified Allergy, Severe, Rash,Itching,, 07/18/15) adhesive tape (Verified Allergy, Severe, Rash,Itching,, 07/18/15) ciprofloxacin (Verified Allergy, Severe, Rash,Itching,, 07/18/15) amitriptyline (Verified Adverse Reaction, Severe, severe drowsiness, ) bupropion (Verified Adverse Reaction, Severe, Nausea,Vomiting, 07/18/15) haloperidol (Verified Adverse Reaction, Severe, Nausea,Vomiting, 07/18/15) ibuprofen (Verified Adverse Reaction, Severe, swell, 07/18/15) tramadol (Verified Adverse Reaction, Severe, Nausea,Vomiting, 07/18/15) Scheduled Amoxicillin/Clav K 875-125 mg (Amoxicillin/Clav K 875-125 mg) 875 Mg Tab 1 TABLET PO BID Cephalexin (Keflex) 500 Mg Capsule 500 MG PO QID Omeprazole (Omeprazole) 20 Mg Capsule.dr 20 MG PO BID Ondansetron ODT (Ondansetron ODT) 8 Mg Tab.rapdis 8 MG PO TID Tamsulosin ER (Tamsulosin ER) 0.4 Mg Cap.er.24h 0.4 MG PO BID URINARY SPASMS Scheduled PRN Albuterol Sulfate (Ventolin HFA Inhaler) 200 Puff/18 Gm Inhaler 2 PUFFS INH Q4H PRN PRN For Shortness of Breath Docusate Sodium (Docusate Sodium) 250 Mg Capsule 1 CAPSULE PO BID PRN PRN For Constipation Hydrocodone-Acetaminophen 10-325 mg (Hydrocodone-Acetaminophen 10-325 mg) 1 Each Tablet 2 TAB Q4-6H PRN PRN For Pain Ketorolac Tromethamine (Ketorolac Tromethamine) 10 Mg Tablet 1 TAB PO Q4-6H PRN PRN For Pain Lorazepam (Lorazepam) 1 Mg Tablet 1 TAB PO TID PRN PRN For Anxiety Ondansetron ODT (Ondansetron ODT) 4 Mg Tab.rapdis 4 MG PO Q4-6H PRN PRN For Nausea Zolpidem (Zolpidem) 10 Mg Tablet 1 TAB PO HS PRN PRN For Insomnia oxyCODONE (oxyCODONE) 10 Mg Tablet 1 TAB PO Q6H PRN PRN For Pain oxyCODONE-Acetaminophen 5-325 mg (oxyCODONE-Acetaminophen 5-325 mg) 1 Each Tablet 1-2 TAB PO Q6H PRN PRN For Pain General Time Seen by MD: 19:22 Chief Complaint Urinary catheter problem Hx Obtained From: Patient Arrived By: Walk-in Sudden in Onset?: Yes Onset Occurred: 5 - 8 hours ago Symptom Duration: Constant Quality: Painful Severity: Current: Severe Severity: Maximum: Severe Pertinent Negative: Relieved by nothing Recent Healthcare: Recent doctor visit Similar Sx Previous: Yes Past Medical History Past Medical History 1. Pelvic inflammatory disease secondary to severe endometriosis status post partial abdominal hysterectomy. 2. Anxiety. 3. Asthma. 4. Insomnia. Past Surgical History 1. Partial abdominal hysterectomy. 2. Cholecystectomy. 3. Tonsillectomy and adenoidectomy. 4. Myringotomy with tympanostomy 22. 5. Exploratory laparotomies. 6. Urinary stents 7. Urinary implantation Family History Mother with diabetes mellitus and history of cervical and uterine cancer status post total abdominal hysterectomy and bilateral salpingo-oophorectomy in remission. Father with diabetes mellitus, hypertension, prostate cancer. Brother with diabetes. Smoking History Current Every Day Smoker Social History Lived in [place] for 8 months where she had seen doctors for her hysterectomy complications. Alcohol Use: Denies alcohol use Drug Use: Denies drug use Other Social History: Good social support, , Local resident Ambulatory Status Independent Review of Systems Urinary retention s/p catheter placement Tingling sensation in right leg Constitutional: Reports: Fatigue, Fever (subjective onset yesterday), Malaise Female: Reports: Flank pain (right-sided), Pelvic pain (r-sided), Urinary frequency Complete sys rev & neg: except as marked. Respiratory: Denies: Non-productive cough, Prod cough, clear Physical Exam Initial Vital Signs Vital Signs (First) Date Time Temp Pulse Resp B/P Pulse Ox O2 Delivery O2 Flow Rate FiO2 10/31/16 19:12 36.8 96 16 112/81 99 Room Air Initial VS: Reviewed Head / Eyes: Atraumatic, Normocephalic Neck: Supple, Full range of motion Respiratory: No respiratory distress Extremities: Vascular intact, Neuro intact, No swelling, No tenderness Skin: Warm, Dry, No cyanosis Neurologic: Alert, Oriented, Nonfocal Psychiatric: Mood/affect normal, Behavior normal, Normal thought content General/Constitutional: Awake, Alert Abdomen: Atraumatic, Soft Extreme abdominal tenderness to lightest possible touch Interpretation & Diagnostics Labs: 2145 on 10/27/16 WBC 8.6 Hematocrit 29.7 Platelet 212 Comparable metabolic panel normal top-bottom UA: normal 0946 on 10/31/16 Metabolic panel normal UA: normal Bladder Scan: 25 mLs Re-Eval/Medical Decision Med Decision/Clinical Course She was prescribed 75 #75 tab of Oxycodone 20 mg tablets on 10/26/16 Source of Hx: Old records Re-Evaluation/Progress #1: Time of Eval: 21:27 Re-Evaluation/Progress Note: Pt rechecked. Discussed past medical history and HPI information. Discussed plan for discharge. Patient wants to be admitted due to her increasing pain. Will discuss pt's case with urologist, Dr. Hargrove, to see if she can be seen tomorrow in their clinic. Re-Evaluation/Progress #2: Time of Eval: 22:18 Patient Status: Condition improved Re-Evaluation/Progress Note: Pt rechecked. Discussed plan for discharge. Pt understands and agrees with plan. Follow-up and return to ED warnings given. All questions addressed. 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 Hargrove. Since she wants the catheter out, Dr. Hargrove suggests self-catheterization overnight. He also recommends: pyridium and flomax. States that he will make certain that the patient is able to be seen tomorrow Counseled Regarding: Diagnosis, Lab results, Need for follow-up, When/why to return to ED Discharge & Departure Impression: Primary Impression: Right flank pain Additional Impression: Intractable abdominal pain Disposition: Home Discharge Condition All VS Reviewed: Yes Condition: Stable Patient Instructions: Acute Abdominal Pain (ED) Additional Instructions: Thank you for entrusting us with your care today. I am so sorry that you are struggling with this very difficult chronic problem. Your examination, including lab work (at [facility] in [place] today), were reassuring. There is no apparent immediately dangerous cause for your symptoms. Go to your appointment with urology tomorrow as planned. Call them at 8 in the morning to establish a specific time. Please return to the emergency department for any new or worsening symptoms. [facility]: Address: [address] [place] [id number] Referrals: [facility] (PCP) Scribe Attestation Portions of this note were transcribed by Ann Garber. I, Dr. Mullen, personally performed the history, physical exam and medical decision-making; I reviewed and confirmed the accuracy of the information in the transcribed note. copies to: [facility] Kirk H MD Oct 31, 2016 20:47 Ann Garber Oct 31, 2016 20:50
[2016-10-31] MEDS ORDERED: Ondansetron 8 mg ODT Tablet PO ONE (21:10)
[2016-10-31 21:12] VITALS: PULSE 96; RESP 16; O2SAT 99
[2016-10-31] MEDS ORDERED: Phenazopyridine 97.5 mg Tablet PO ONE (22:25)
[2016-10-31] MEDS ORDERED: _HYDROcodone/APAP 5-325 mg Tablet PO PRN (22:25)
[2016-10-31 22:45] VITALS: PULSE 96; RESP 16; O2SAT 99
== END 2016-10-31 22:46 | disposition home or self-care (01) ==
LOC: SED 19:07
DX: R10.31 Right lower quadrant pain (principal); R20.2 Paresthesia of skin; R10.2 Pelvic and perineal pain; R53.83 Other fatigue; R50.9 Fever, unspecified; R53.81 Other malaise; J45.909 Unspecified asthma, uncomplicated; F41.9 Anxiety disorder, unspecified; F17.200 Nicotine dependence, unspecified, uncomplicated; Z90.49 Acquired absence of other specified parts of digestive tract; Z90.89 Acquired absence of other organs; Z90.711 Acquired absence of uterus with remaining cervical stump; Z98.890 Other specified postprocedural states; Z88.1 Allergy status to other antibiotic agents; Z88.2 Allergy status to sulfonamides; Z88.5 Allergy status to narcotic agent; Z88.6 Allergy status to analgesic agent; Z88.8 Allergy status to other drugs, medicaments and biological substances; Z91.048 Other nonmedicinal substance allergy status